=== PATIENT | male | born 1950 | race Caucasian/White ===

== ENCOUNTER 2018-06-19 05:20 | Observation (INO) | payer OTHER, MEDICARE ==
[~2018-06-19] VITALS: Ht 177.8 cm; Wt 103.9 kg
[~2018-06-19 05:20] MED LIST: MULTIVITAMIN1 TAB PO; OMEPRAZOLE20 MG PO; PERCOCET 5-3251 EACH PO; TRIBENZOR 10 MG1 TA1 PO; VIAGRA25 M1 PO
[2018-06-19 15:00] VITALS: BP 110/78
[2018-06-19 17:59] LABS: ABSOLUTE BASOPHIL COUNT 0 /CUMM (0.0-0.2); ABSOLUTE EOSINOPHIL COUNT 0 /CUMM (0.0-0.7); ABSOLUTE GRANULOCYTE CT 12.9 /CUMM (1.4-6.5); ABSOLUTE LYMPH COUNT 0.8 /CUMM (1.2-3.4); ABSOLUTE MONOCYTE COUNT 0.1 /CUMM (0.10-0.60); BASOPHIL % 0 % (0.0-2.0); EOSINOPHIL % 0 % (0-5); GRANULOCYTE % 93.7 % (42.2-75.2); HEMATOCRIT 46.7 % (42-52); MEAN CORPUSCULAR HGB 29.9 PG (27.0-31.0); MEAN CORPUSCULAR HGB CONC 33.5 G/DL (33.0-37.0); MEAN CORPUSCULAR VOLUME 89.3 FL (80.0-94.0); MEAN PLATELET VOLUME 10.5 FL (7.4-10.4); PLATELET COUNT 233 /CUMM (130-400); RBC DISTRIBUTION WIDTH 13.6 % (11.5-14.5); RED BLOOD CELL CT 5.23 /CUMM (4.70-6.10); WHITE BLOOD CELL COUNT 13.8 /CUMM (4.8-10.8)
[2018-06-19 22:47] VITALS: BP 128/70
[2018-06-20 06:01] VITALS: BP 138/80
--- NOTE | 2018-06-20 09:33 | PN- Urology ---
Surgical Brief Attending Note Brief Attending Note: Pt to be placed in observation 23 hours due to poor pain management, and post anesthesia combatative confused behaviour. Will re-evaluate for dc home with osbaldo in am.
[2018-06-20] MEDS ORDERED: PHENAZOPYRIDIN100 M3 PO (09:35)
[2018-06-20] MEDS ORDERED: DOCUSATE SODIU100 M3 PO (09:35)
[2018-06-20] MEDS ORDERED: AMOX-CLAV 875-1 EACH PO (09:35)
[2018-06-20] MEDS ORDERED: PERCOCET 5-3251 EACH PO (09:35)
[2018-06-20 09:41] VITALS: BP 140/78
--- NOTE | 2018-06-20 09:46 | Operative Report ---
Operative/Inv Procedure Report Surgery Date: 06/19/18 Name of Procedure: semi-rigid penile implant bilaterally Pre-Operative Diagnosis: erectile dysfunction post prostatectomy. Post-Operative Diagnosis: same Estimated Blood Loss: less than 50ml Surgeon/Acute Care Clinical Nurse Specialist: Juan Daniel Rose MD Drains: 16fr roblero Microbiology: UCx Tourniquet: n Complications: none Operative/Procedure Note Findings: 18 cm semi rigid cavernosal implants Discharge Disposition: PACU CC: Juan Daniel Rose MD
[2018-06-20] MEDS ORDERED: BACITRACIN28.4 GM TOP (14:17)
== END 2018-06-20 15:35 ==
LOC: STS 05:20 → PACUH 12:16 → ENRESERV 12:42 → ENTRNSPT 14:53 → EDTRNSPTSTS 15:05 → EDTRNSPT 15:05 → 2NA 15:07 → CMPTRNSPT 15:20 → 2NA 18:02 → ENPENDDIS 06-20 14:14 → DELTRNSPT 06-20 15:16 → ENTRNSPT 06-20 15:18 → EDTRNSPTSTS 06-20 15:19 → EDTRNSPT 06-20 15:19 → 2NA 06-20 15:35 → CMPTRNSPT 06-20 15:35
PROVIDERS: Urology
DX: N52.9 Male erectile dysfunction, unspecified (principal); I10 Essential (primary) hypertension; Z85.46 Personal history of malignant neoplasm of prostate
CPT/HCPCS: 6030; 82436; 87086; 96374; G0378; J0690; J1580; J2250; J2405; J3370; J7042